=== PATIENT | male | born 1970 | race Caucasian/White ===

== ENCOUNTER 2022-10-22 17:06 | Outpatient (CLI) | payer OTHER, SELFPAY ==
[2022-10-22 21:56] LABS: Albumin* 4.6 g/dL (3.3-5.0); Chloride* 103 mmol/L (96-114); Sodium* 138 mmol/L (135-149)
[2022-10-22 21:57] LABS: Potassium* 4.4 mmol/L (3.6-5.1)
[2022-10-22 21:58] LABS: Cholesterol* 284 mg/dL (90-199)
[2022-10-22 21:59] LABS: Alanine Aminotransferase* 31 U/L (4-50); Alkaline Phosphatase* 66 U/L (40-150); Aspartate Amino Transferase* 26 U/L (12-35); Bilirubin Total* 0.9 mg/dL (0.1-1.5); Blood Urea Nitrogen* 13 mg/dL (7-30); Calcium* 9.8 mg/dL (8.4-10.6); Carbon Dioxide* 28 mmol/L (20-32); Creatinine* 0.8 mg/dL (0.5-1.5); Estimated Glomerular Filt Rate 105 ml/min; Glucose* 87 mg/dL (60-115); Total Protein* 7.2 g/dL (6.0-8.3)
[2022-10-22 22:26] LABS: PSA Screen* 1.97 ng/mL (0.10-4.00)
== END 2022-10-22 17:07 | disposition home or self-care (01) ==
LOC: LKVREF 17:24
PROVIDERS: PCP Family Medicine; Visit Provider Emergency Medicine
DX: Z00.00 Encounter for general adult medical examination without abnormal findings (principal); E78.00 Pure hypercholesterolemia, unspecified; Z13.1 Encounter for screening for diabetes mellitus; Z12.5 Encounter for screening for malignant neoplasm of prostate
CPT/HCPCS: 80053; 82465; 84153

== ENCOUNTER 2022-11-25 09:58 | Outpatient (CLI) | payer OTHER, SELFPAY | END 2022-11-25 09:59 | disposition home or self-care (01) | LOC: OP CLINIC 10:00 | PROVIDERS: PCP Family Medicine; Visit Provider Surgery | DX: Z12.11 Encounter for screening for malignant neoplasm of colon (principal); K57.30 Diverticulosis of large intestine without perforation or abscess without bleeding; K63.5 Polyp of colon; K63.89 Other specified diseases of intestine | CPT/HCPCS: 45380; 45385; 88305; 99153; J2250; J3010 ==

== ENCOUNTER 2022-12-04 09:18 | Outpatient (CLI) | payer OTHER, SELFPAY ==
[2022-12-04 21:40] LABS: Cholesterol* 256 mg/dL (90-199)
[2022-12-04 21:41] LABS: HDL Cholesterol* 64 mg/dL (>=40); LDL Cholesterol Calculated 180 mg/dL (<100); Triglycerides* 60 mg/dL (40-149)
== END 2022-12-04 09:19 | disposition home or self-care (01) ==
LOC: LKVREF 14:58
PROVIDERS: PCP Family Medicine; Visit Provider Emergency Medicine
DX: E78.00 Pure hypercholesterolemia, unspecified (principal)
CPT/HCPCS: 80061

== ENCOUNTER 2023-05-09 09:00 | Outpatient (CLI) | payer OTHER, SELFPAY | END 2023-05-09 09:01 | disposition home or self-care (01) | LOC: NFLDREF 05-10 09:51 | PROVIDERS: PCP Family Medicine; Referring Provider Family Medicine; Visit Provider Emergency Medicine | DX: E78.00 Pure hypercholesterolemia, unspecified (principal) | CPT/HCPCS: 80061 ==